=== PATIENT | female | born 1950 | race Two or more races ===

== ENCOUNTER 2023-10-02 04:09 | Day surgery (SDC) | payer OTHER ==
[2023-09-25 14:18] VITALS: BMI 24.9
[2023-10-02] MEDS ORDERED: ceFAZolin SODIUM 1 GM VIAL ONE (06:16)
[2023-10-02] MEDS: PHENAZOPYRIDINE HCL 100 MG TABLET (FP) PO ONE (06:34)
[2023-10-02] MEDS: ACETAMINOPHEN 500 MG TABLET (FP) PO ONE (06:34)
[2023-10-02] MEDS ORDERED: PROPOFOL 20 ML ONE (07:12)
[2023-10-02] MEDS ORDERED: ROCURONIUM BROMIDE 50 MG/5 ML SYRINGE ONE ×2 (07:12→08:29)
[2023-10-02] MEDS ORDERED: MIDAZOLAM HCL 2 MG/2 ML SINGLE DOSE VIAL ONE (07:13)
[2023-10-02] MEDS: ceFAZolin SODIUM 1 GM VIAL IVPB ONE (07:55)
[2023-10-02] MEDS ORDERED: DEXAMETHASONE SOD PHOSPHATE 4 MG/1 ML VIAL ONE (08:07)
[2023-10-02] MEDS ORDERED: SUGAMMADEX SODIUM 200 MG/2 ML VIAL ONE (08:29)
[2023-10-02] MEDS ORDERED: HYDROmorphone HCl 2 MG/ML VIAL ONE (09:08)
[2023-10-02] MEDS ORDERED: oxyCODONE HCL 5 MG TABLET PO PRN ×6 (09:31→10:08)
[2023-10-02] MEDS ORDERED: ONDANSETRON 4 MG/2 ML VIAL IVPUSH PRN ×2 (09:31→10:08)
[2023-10-02] MEDS ORDERED: CEFAZOLIN 2 GM in DEXTROSE 5%-WATER - 100 ML IVPB SCH (10:00)
[2023-10-02] MEDS: ACETAMINOPHEN 1000 MG/100 ML BAG IVPB PRN (11:00)
[2023-10-02] MEDS: ACETAMINOPHEN INJECTION 100 ML IVPB ONE (11:00)
[2023-10-02] MEDS: LACTATED RINGERS SOLUTION 1,000 ML IV SCH ×2 (11:45→19:11)
[2023-10-02] MEDS ORDERED: IBUPROFEN 400 MG TABLET (FP) PO SCH (13:00)
[2023-10-02] MEDS: IBUPROFEN 400 MG TABLET (FP) PO SCH (13:48)
[2023-10-02 16:04] LABS: BASO % 0.1 % (0-2.0); HEMATOCRIT 38.7 % (32.4-45.2); HEMOGLOBIN 12.8 GM/dL (10.7-15.3); LYMPH % 8.4 % (8-40); MCH 29.6 pg (25.7-33.7); MCHC 33.1 g/dl (32.0-36.0); MEAN CELL VOLUME 89.5 fl (80-96); MEAN PLT VOLUME 6.2 fl (7.5-11.1); MONO % 1.5 % (3.8-10.2); PLATELET COUNT 291 10^3/uL (134-434); RBC 4.33 M/mm3 (3.60-5.2); RDW 13.4 % (11.6-15.6)
[2023-10-02] MEDS: ACETAMINOPHEN 500 MG TABLET (FP) PO SCH ×2 (16:29→19:11)
[2023-10-02] MEDS: CEFAZOLIN SODIUM 2 GM in DEXTROSE 5%-WATER 100 ML IVPB SCH (16:30)
[2023-10-02] MEDS: CEFAZOLIN 2 GM in DEXTROSE 5%-WATER - 100 ML IVPB ONE (19:11)
[2023-10-02] MEDS: ENOXAPARIN NA (PORCINE) 30 MG/0.3 ML DISP.SYRIN SQ SCH (19:11)
[2023-10-03 08:05] LABS: BASO % 0.3 % (0-2.0); EOS % 0.1 % (0-4.5); HEMATOCRIT 35.8 % (32.4-45.2); LYMPH % 18.9 % (8-40); MCH 30.2 pg (25.7-33.7); MCHC 33.6 g/dl (32.0-36.0); MEAN CELL VOLUME 89.8 fl (80-96); MEAN PLT VOLUME 6.1 fl (7.5-11.1); MONO % 8.4 % (3.8-10.2); NEUT % 72.3 % (42.8-82.8); PLATELET COUNT 291 10^3/uL (134-434); RBC 3.99 M/mm3 (3.60-5.2); RDW 13.3 % (11.6-15.6); WHITE BLOOD COUNT 11.1 K/mm3 (4.0-10.0)
[2023-10-03 08:23] LABS: POTASSIUM 3.8 mmol/L (3.5-5.1)
[2023-10-03 08:24] LABS: CALCIUM 8.4 mg/dL (8.5-10.1)
[2023-10-03 08:28] LABS: CREATININE 0.8 mg/dL (0.55-1.3)
[2023-10-03 08:30] VITALS: RESP 16
[2023-10-03 08:33] VITALS: BP 112/73; PULSE 76; TEMP 97.9
[2023-10-03] MEDS: ENOXAPARIN NA (PORCINE) 30 MG/0.3 ML DISP.SYRIN SQ SCH (09:25)
== END 2023-10-03 10:21 | disposition home or self-care (01) ==
LOC: JASUSAT 04:09 → J3W 12:03 → JASUSAT 10-03 10:21
PROVIDERS: ATTEND Obstetrics & Gynecology
PROC: 0UT2FZZ Resection of Bilateral Ovaries, Via Natural or Artificial Opening With Percutaneous Endoscopic Assistance (ICD-10-PCS; 2023-10-02)
PROC: 8E0W4CZ Robotic Assisted Procedure of Trunk Region, Percutaneous Endoscopic Approach (ICD-10-PCS; 2023-10-02)
PROC: 8E0W4CZ Robotic Assisted Procedure of Trunk Region, Percutaneous Endoscopic Approach (ICD-10-PCS; 2023-10-02)
PROC: 0UT9FZZ Resection of Uterus, Via Natural or Artificial Opening With Percutaneous Endoscopic Assistance (ICD-10-PCS; principal; 2023-10-02 07:30)
PROC: 0UT7FZZ Resection of Bilateral Fallopian Tubes, Via Natural or Artificial Opening With Percutaneous Endoscopic Assistance (ICD-10-PCS; 2023-10-02 07:30)
DX: N81.4 Uterovaginal prolapse, unspecified (principal); N72 Inflammatory disease of cervix uteri; N88.8 Other specified noninflammatory disorders of cervix uteri; N84.1 Polyp of cervix uteri
CPT/HCPCS: 58552; S2900; 36415; 80048; 85025; 86850; 86900; 86901; 88305-TC; 88307-TC; 88341-TC; 88342-TC; 94010; 94760; J0131